=== PATIENT | female | born 1965 | race Caucasian/White ===

== ENCOUNTER 2021-09-14 09:10 | Inpatient (IN) | payer MEDICAID ==
[~2021-09-14] VITALS: Ht 144.8 cm; Wt 90.7 kg
[2021-09-14 11:13] LABS: BASOPHILS % 0.6 % (0.0-2.0); EOSINOPHILS % 2.4 % (0.0-5.0); HEMATOCRIT. 39.8 % (36.0-48.0); HEMOGLOBIN. 12.9 g/dL (12.0-16.0); MEAN CORPUSCULAR HEMOGLOBIN 27.8 pg (28.0-32.0); MEAN CORPUSCULAR VOLUME 85.7 fL (81.0-99.0); MONOCYTES % 7.8 % (2.0-8.0); NEUTROPHILS % 72.2 % (40.0-76.0); PLATELET 326 x1000/uL (130-400); RED BLOOD CELL COUNT 4.65 mill/uL (4.2-5.4); RED CELL DISTRIBUTION WIDTH 14.8 % (11.6-14.6)
[2021-09-14 11:15] LABS: CHLORIDE 101 mEq/L (98-107)
[2021-09-14] MEDS ORDERED: SODIUM CHLORIDE 0.9% 1,000 ML IV ONE (11:15)
[2021-09-14] MEDS ORDERED: CEFTRIAXONE 2 G PREMIX 50 ML IV ONE (12:15)
[2021-09-14] MEDS ORDERED: VANCOMYCIN 1G PREMIX 200 ML IV ONE (12:15)
[2021-09-14] MEDS ORDERED: CEFTRIAXONE 2 G in DEXTROSE 5% WATER 50 ML IV NR (12:30)
[2021-09-14] MEDS ORDERED: IOHEXOL-300 100 ML BOTTLE ONE (14:57)
[2021-09-14] MEDS ORDERED: CLONIDINE 0.1MG TABLET PO PRN (15:00)
[2021-09-14] MEDS ORDERED: IPRATROPIUM/ALBUTEROL 0.5-3(2.5)MG/3ML NEB HHN PRN (15:00)
[2021-09-14] MEDS ORDERED: LORAZEPAM 0.5MG TABLET PO PRN (15:00)
[2021-09-14] MEDS ORDERED: ACETAMINOPHEN 650MG SUPP PR PRN ×2 (15:00)
[2021-09-14] MEDS ORDERED: MAGNESIUM/ALUMINUM HYDROXIDE/SIMETHICONE 30ML UDC PO PRN (15:00)
[2021-09-14] MEDS ORDERED: ACETAMINOPHEN 325MG TABLET PO PRN (15:00)
[2021-09-14] MEDS ORDERED: POLYMYXIN B SULFATE 500000 UNITS/VIAL ONE ×2 (15:17→15:46)
[2021-09-14] MEDS: CEFEPIME 2,000 MG in DEXT 5% WATER 100 ML IV SCH ×2 (15:18→23:07)
[2021-09-14] MEDS ORDERED: VANCOMYCIN HCL 1 GM/VIAL ONE (15:18)
[2021-09-14] MEDS ORDERED: LIDOCAINE HCL 1% 10 MG/ML 10ML VIAL ONE (15:44)
[2021-09-14] MEDS ORDERED: PROPOFOL 200MG/20ML VIAL IV ONE (15:44)
[2021-09-14] MEDS ORDERED: DEXAMETHASONE 4MG/ML 1ML VIAL ONE (15:57)
[2021-09-14] MEDS ORDERED: ONDANSETRON HCL 4MG/2ML INJ ONE (15:57)
[2021-09-14] MEDS ORDERED: MIDAZOLAM HCL 2 MG/2 ML VIAL ONE (15:57)
[2021-09-14] MEDS ORDERED: FENTANYL CITRATE/PF 50MCG/ML 2ML VIAL ONE (15:57)
[2021-09-14] MEDS ORDERED: GLYCOPYRROLATE 0.2 MG/ML 2ML VIAL IV PRN (17:15)
[2021-09-14] MEDS ORDERED: MEPERIDINE HCL/PF 25MG/ML CPJ IV PRN (17:15)
[2021-09-14] MEDS ORDERED: FENTANYL CITRATE/PF 50MCG/ML 2ML VIAL IV PRN (17:15)
[2021-09-14] MEDS ORDERED: HYDROMORPHONE HCL/PF 2MG/ML CPJ IV PRN (17:15)
[2021-09-14] MEDS ORDERED: NALOXONE HCL 0.4MG/ML VIAL IV PRN (17:30)
[2021-09-14 20:00] VITALS: BP 130/76
[2021-09-14 21:30] VITALS: BP 130/76
[2021-09-14] MEDS ORDERED: HYDR-4001 MT (22:33)
[2021-09-14] MEDS ORDERED: PANT40TA51 PO (22:34)
[2021-09-15] VITALS: BP 123/78
[2021-09-15 04:00] VITALS: BP 127/76
[2021-09-15 06:29] LABS: BASOPHILS % 0.4 % (0.0-2.0); EOSINOPHILS % 0.1 % (0.0-5.0); HEMATOCRIT. 35.8 % (36.0-48.0); HEMOGLOBIN. 11.8 g/dL (12.0-16.0); LYMPHOCYTES % 14.1 % (20.0-50.0); MEAN CORPUSCULAR HEMOGLOBIN 28.4 pg (28.0-32.0); MEAN CORPUSCULAR VOLUME 85.8 fL (81.0-99.0); MEAN PLATELET VOLUME 7.8 fl (7.4-10.4); NEUTROPHILS % 80.4 % (40.0-76.0); PLATELET 309 x1000/uL (130-400); RED BLOOD CELL COUNT 4.18 mill/uL (4.2-5.4); RED CELL DISTRIBUTION WIDTH 14.6 % (11.6-14.6)
[2021-09-15 06:33] LABS: CHLORIDE 105 mEq/L (98-107)
[2021-09-15 06:50] LABS: CREATINE KINASE 78 IU/L (26-192); HDL CHOLESTEROL 55 mg/dL (40-59); LDL CHOLESTEROL 91 mg/dL (5-100)
[2021-09-15 08:00] VITALS: BP 116/68
[2021-09-15] MEDS: CEFEPIME 2,000 MG in DEXT 5% WATER 100 ML IV SCH ×2 (09:49→20:11)
[2021-09-15 10:56] LABS: CLARITY URINE CLEAR (CLEAR); COLOR URINE YELLOW (YELLOW); KETONES URINE 1+ (NEGATIVE); LEUKOCYTE ESTERASE URINE NEGATIVE (NEGATIVE); NITRITE URINE NEGATIVE (NEGATIVE); OCCULT BLOOD URINE NEGATIVE (NEGATIVE); PROTEIN URINE NEGATIVE (NEGATIVE); SPECIFIC GRAVITY URINE 1.019 (1.005-1.030); UROBILINOGEN URINE 0.2 E.U./dL (0.2-1.0)
[2021-09-15 12:00] VITALS: BP 121/72
[2021-09-15 16:00] VITALS: BP 122/78
[2021-09-15] MEDS: VANCOMYCIN 1G PREMIX 200 ML IV SCH ×2 (16:32)
[2021-09-15] MEDS ORDERED: NALOXONE HCL 0.4MG/ML VIAL IV PRN (19:00)
[2021-09-15 20:19] VITALS: BP 121/73
[2021-09-15] MEDS: HYDROCODONE/ACETAMINOPHEN 5/325MG TABLET PO PRN (23:05)
[2021-09-16 00:44] VITALS: BP 113/54
[2021-09-16 04:00] VITALS: BP 114/65
[2021-09-16 06:49] LABS: CHLORIDE 108 mEq/L (98-107)
[2021-09-16 07:01] LABS: BASOPHILS % 0.5 % (0.0-2.0); EOSINOPHILS % 5.4 % (0.0-5.0); HEMATOCRIT. 33.2 % (36.0-48.0); HEMOGLOBIN. 10.8 g/dL (12.0-16.0); MEAN CORPUSCULAR HEMOGLOBIN 27.8 pg (28.0-32.0); MEAN CORPUSCULAR VOLUME 85.5 fL (81.0-99.0); MEAN PLATELET VOLUME 7.7 fl (7.4-10.4); MONOCYTES % 8.9 % (2.0-8.0); NEUTROPHILS % 56.2 % (40.0-76.0); PLATELET 305 x1000/uL (130-400); RED BLOOD CELL COUNT 3.88 mill/uL (4.2-5.4); RED CELL DISTRIBUTION WIDTH 14.8 % (11.6-14.6)
[2021-09-16 08:00] VITALS: BP_SYST 114; BP_SYST 120; BP_DIAS 72; BP_DIAS 76
[2021-09-16] MEDS: CEFEPIME 2,000 MG in DEXT 5% WATER 100 ML IV SCH (09:52)
[2021-09-16] MEDS: VANCOMYCIN 750 MG in DEXT 5% WATER 250 ML IV SCH ×2 (11:19→21:41)
[2021-09-16] MEDS: MORPHINE SULFATE 2 MG/ML CPJ (NOT FOR IM USE) IV PRN (11:20)
[2021-09-16 12:00] VITALS: BP 120/72
[2021-09-16 16:00] VITALS: BP 123/76
[2021-09-16 20:00] VITALS: BP 119/73
[2021-09-17] VITALS: BP 112/68
[2021-09-17] MEDS: HYDROCODONE/ACETAMINOPHEN 5/325MG TABLET PO PRN ×2 (00:41→22:23)
[2021-09-17 04:00] VITALS: BP 117/81
[2021-09-17 06:56] LABS: BASOPHILS % 0.7 % (0.0-2.0); EOSINOPHILS % 8.8 % (0.0-5.0); HEMATOCRIT. 33.8 % (36.0-48.0); HEMOGLOBIN. 11.1 g/dL (12.0-16.0); LYMPHOCYTES % 28.4 % (20.0-50.0); MEAN CORPUSCULAR HEMOGLOBIN 28.2 pg (28.0-32.0); MEAN CORPUSCULAR VOLUME 85.7 fL (81.0-99.0); MEAN PLATELET VOLUME 7.7 fl (7.4-10.4); MONOCYTES % 8.5 % (2.0-8.0); NEUTROPHILS % 53.6 % (40.0-76.0); PLATELET 340 x1000/uL (130-400); RED BLOOD CELL COUNT 3.94 mill/uL (4.2-5.4); RED CELL DISTRIBUTION WIDTH 14.6 % (11.6-14.6)
[2021-09-17 07:32] LABS: CHLORIDE 105 mEq/L (98-107)
[2021-09-17 08:00] VITALS: BP 122/67
[2021-09-17] MEDS: VANCOMYCIN 750 MG in DEXT 5% WATER 250 ML IV SCH ×2 (11:29→22:10)
[2021-09-17 12:00] VITALS: BP 117/68
[2021-09-17 16:00] VITALS: BP 123/59
[2021-09-17 20:00] VITALS: BP 134/77
[2021-09-17] MEDS: ENOXAPARIN 30MG/0.3ML SYR SUBCUT SCH (22:10)
[2021-09-18] VITALS: BP 102/63
[2021-09-18 04:00] VITALS: BP 105/62
[2021-09-18 07:22] LABS: BASOPHILS % 0.5 % (0.0-2.0); EOSINOPHILS % 6.6 % (0.0-5.0); HEMATOCRIT. 34.4 % (36.0-48.0); HEMOGLOBIN. 11.3 g/dL (12.0-16.0); LYMPHOCYTES % 26.3 % (20.0-50.0); MEAN CORPUSCULAR HEMOGLOBIN 27.8 pg (28.0-32.0); MEAN CORPUSCULAR VOLUME 84.9 fL (81.0-99.0); MEAN PLATELET VOLUME 7.9 fl (7.4-10.4); MONOCYTES % 7.5 % (2.0-8.0); NEUTROPHILS % 59.1 % (40.0-76.0); PLATELET 337 x1000/uL (130-400); RED BLOOD CELL COUNT 4.05 mill/uL (4.2-5.4); RED CELL DISTRIBUTION WIDTH 14.8 % (11.6-14.6)
[2021-09-18 07:44] LABS: CHLORIDE 103 mEq/L (98-107)
[2021-09-18 09:00] VITALS: BP 120/69
[2021-09-18] MEDS: VANCOMYCIN 750 MG in DEXT 5% WATER 250 ML IV SCH ×2 (10:44→21:19)
[2021-09-18] MEDS: ENOXAPARIN 30MG/0.3ML SYR SUBCUT SCH ×2 (10:45→21:19)
[2021-09-18 12:00] VITALS: BP 120/65
[2021-09-18 16:00] VITALS: BP 107/70
[2021-09-18] MEDS ORDERED: MAGNESIUM/ALUMINUM HYDROXIDE/SIMETHICONE 30ML UDC PO PRN (18:15)
[2021-09-18 20:00] VITALS: BP 134/54
[2021-09-18] MEDS: HYDROCODONE/ACETAMINOPHEN 5/325MG TABLET PO PRN (23:02)
[2021-09-19] VITALS: BP 113/55
[2021-09-19 04:00] VITALS: BP 98/51
[2021-09-19] MEDS ORDERED: LIDOCAINE HCL/PF 1% 10 MG/ML 5ML VIAL ONE (07:40)
[2021-09-19 08:00] VITALS: BP 113/69
[2021-09-19] MEDS: ENOXAPARIN 30MG/0.3ML SYR SUBCUT SCH ×2 (09:15→20:39)
[2021-09-19] MEDS: VANCOMYCIN 750 MG in DEXT 5% WATER 250 ML IV SCH ×2 (10:34→22:09)
[2021-09-19 12:00] VITALS: BP 120/64
[2021-09-19] MEDS: MORPHINE SULFATE 2 MG/ML CPJ (NOT FOR IM USE) IV PRN (13:58)
[2021-09-19 16:00] VITALS: BP 120/64
[2021-09-19 20:00] VITALS: BP 136/77
[2021-09-19] MEDS: HYDROCODONE/ACETAMINOPHEN 5/325MG TABLET PO PRN (22:09)
[2021-09-20] VITALS: BP 129/75
[2021-09-20 04:00] VITALS: BP 117/62
[2021-09-20 08:00] VITALS: BP 129/73
[2021-09-20] MEDS: ENOXAPARIN 30MG/0.3ML SYR SUBCUT SCH ×2 (09:36→22:36)
[2021-09-20] MEDS: VANCOMYCIN 750 MG in DEXT 5% WATER 250 ML IV SCH ×2 (11:03→22:36)
[2021-09-20 12:00] VITALS: BP 128/75
[2021-09-20 16:00] VITALS: BP 126/83
[2021-09-20 20:00] VITALS: BP 125/72
[2021-09-20] MEDS: HYDROCODONE/ACETAMINOPHEN 5/325MG TABLET PO PRN (22:38)
[2021-09-21] VITALS: BP 114/53
[2021-09-21 04:00] VITALS: BP 107/69
[2021-09-21 07:29] LABS: CHLORIDE 106 mEq/L (98-107)
[2021-09-21 08:00] VITALS: BP 138/83
[2021-09-21] MEDS: ENOXAPARIN 30MG/0.3ML SYR SUBCUT SCH ×2 (08:01→21:35)
[2021-09-21] MEDS: VANCOMYCIN 750 MG in DEXT 5% WATER 250 ML IV SCH ×2 (10:52→23:46)
[2021-09-21 12:00] VITALS: BP 120/69
[2021-09-21 16:00] VITALS: BP 126/56
[2021-09-21 20:00] VITALS: BP 120/67
[2021-09-21] MEDS: HYDROCODONE/ACETAMINOPHEN 5/325MG TABLET PO PRN (21:35)
[2021-09-22] VITALS: BP 114/55
[2021-09-22 04:00] VITALS: BP 112/63
[2021-09-22 07:23] LABS: CHLORIDE 103 mEq/L (98-107)
[2021-09-22 08:00] VITALS: BP 133/70
[2021-09-22] MEDS: ENOXAPARIN 30MG/0.3ML SYR SUBCUT SCH ×2 (08:54→21:10)
[2021-09-22 09:03] LABS: BASOPHILS % 0.4 % (0.0-2.0); EOSINOPHILS % 7.9 % (0.0-5.0); HEMATOCRIT. 34.2 % (36.0-48.0); HEMOGLOBIN. 11.1 g/dL (12.0-16.0); LYMPHOCYTES % 25.8 % (20.0-50.0); MEAN CORPUSCULAR HEMOGLOBIN 27.8 pg (28.0-32.0); MEAN CORPUSCULAR VOLUME 85.8 fL (81.0-99.0); MEAN PLATELET VOLUME 8.2 fl (7.4-10.4); MONOCYTES % 8.5 % (2.0-8.0); NEUTROPHILS % 57.4 % (40.0-76.0); PLATELET 360 x1000/uL (130-400); RED BLOOD CELL COUNT 3.99 mill/uL (4.2-5.4); RED CELL DISTRIBUTION WIDTH 15.1 % (11.6-14.6)
[2021-09-22] MEDS: VANCOMYCIN 750 MG in DEXT 5% WATER 250 ML IV SCH ×2 (11:10→22:11)
[2021-09-22 12:00] VITALS: BP 114/75
[2021-09-22 16:00] VITALS: BP 120/69
[2021-09-22] MEDS: HYDROCODONE/ACETAMINOPHEN 5/325MG TABLET PO PRN (17:36)
[2021-09-22 20:00] VITALS: BP 125/88
[2021-09-23] VITALS: BP 117/76
[2021-09-23] MEDS: HYDROCODONE/ACETAMINOPHEN 5/325MG TABLET PO PRN ×2 (00:48→21:04)
[2021-09-23 04:00] VITALS: BP 114/62
[2021-09-23 07:31] LABS: BASOPHILS % 0.5 % (0.0-2.0); HEMATOCRIT. 34.3 % (36.0-48.0); HEMOGLOBIN. 11.3 g/dL (12.0-16.0); MEAN CORPUSCULAR HEMOGLOBIN 27.9 pg (28.0-32.0); MEAN CORPUSCULAR VOLUME 84.9 fL (81.0-99.0); MEAN PLATELET VOLUME 8.2 fl (7.4-10.4); MONOCYTES % 8.3 % (2.0-8.0); NEUTROPHILS % 55.2 % (40.0-76.0); PLATELET 328 x1000/uL (130-400); RED BLOOD CELL COUNT 4.04 mill/uL (4.2-5.4); RED CELL DISTRIBUTION WIDTH 15.1 % (11.6-14.6)
[2021-09-23 07:46] LABS: CHLORIDE 103 mEq/L (98-107)
[2021-09-23 08:00] VITALS: BP 110/60
[2021-09-23] MEDS: ENOXAPARIN 30MG/0.3ML SYR SUBCUT SCH ×2 (08:23→21:03)
[2021-09-23] MEDS: VANCOMYCIN 750 MG in DEXT 5% WATER 250 ML IV SCH ×2 (11:38→22:37)
[2021-09-23 12:00] VITALS: BP_SYST 143; BP_SYST 146; BP_DIAS 56; BP_DIAS 59
[2021-09-23 16:00] VITALS: BP_SYST 133; BP_DIAS 65; BP_DIAS 85
[2021-09-23 20:16] VITALS: BP 113/70
[2021-09-24] VITALS (8 sets, daily range): BP systolic 102–121; BP diastolic 56–67
[2021-09-24] MEDS: HYDROCODONE/ACETAMINOPHEN 5/325MG TABLET PO PRN (05:47)
[2021-09-24 06:31] LABS: BASOPHILS % 0.8 % (0.0-2.0); EOSINOPHILS % 9.1 % (0.0-5.0); HEMOGLOBIN. 11.2 g/dL (12.0-16.0); LYMPHOCYTES % 26.2 % (20.0-50.0); MEAN CORPUSCULAR HEMOGLOBIN 27.9 pg (28.0-32.0); MEAN CORPUSCULAR VOLUME 84.9 fL (81.0-99.0); MEAN PLATELET VOLUME 7.9 fl (7.4-10.4); MONOCYTES % 8.9 % (2.0-8.0); PLATELET 322 x1000/uL (130-400); RED BLOOD CELL COUNT 4.01 mill/uL (4.2-5.4); RED CELL DISTRIBUTION WIDTH 15.1 % (11.6-14.6)
[2021-09-24 06:49] LABS: CHLORIDE 104 mEq/L (98-107)
[2021-09-24] MEDS: ENOXAPARIN 30MG/0.3ML SYR SUBCUT SCH ×2 (08:17→20:40)
[2021-09-24] MEDS: VANCOMYCIN 750 MG in DEXT 5% WATER 250 ML IV SCH ×2 (10:48→22:42)
[2021-09-24] MEDS: ACETAMINOPHEN 325MG TABLET PO PRN (20:41)
[2021-09-25] VITALS: BP 112/70
[2021-09-25] MEDS: ACETAMINOPHEN 325MG TABLET PO PRN (02:50)
[2021-09-25 04:00] VITALS: BP 113/74
[2021-09-25 08:00] VITALS: BP 127/76
[2021-09-25] MEDS: HYDROCODONE/ACETAMINOPHEN 5/325MG TABLET PO PRN ×2 (09:02→22:39)
[2021-09-25] MEDS: ENOXAPARIN 30MG/0.3ML SYR SUBCUT SCH ×2 (09:03→21:13)
[2021-09-25] MEDS: VANCOMYCIN 750 MG in DEXT 5% WATER 250 ML IV SCH ×2 (10:28→23:26)
[2021-09-25 12:00] VITALS: BP 120/67
[2021-09-25] MEDS ORDERED: NALOXONE HCL 0.4MG/ML VIAL IV PRN (15:00)
[2021-09-25 16:00] VITALS: BP 115/68
[2021-09-25 20:00] VITALS: BP 102/63
[2021-09-26] VITALS: BP 110/63
[2021-09-26 04:00] VITALS: BP 118/60
[2021-09-26 08:00] VITALS: BP 133/78
[2021-09-26] MEDS: ENOXAPARIN 30MG/0.3ML SYR SUBCUT SCH ×2 (08:31→21:14)
[2021-09-26 12:00] VITALS: BP 121/77
[2021-09-26] MEDS: VANCOMYCIN 750 MG in DEXT 5% WATER 250 ML IV SCH ×2 (12:04→23:00)
[2021-09-26 16:00] VITALS: BP 104/69
[2021-09-26 20:00] VITALS: BP 121/72
[2021-09-26] MEDS: HYDROCODONE/ACETAMINOPHEN 5/325MG TABLET PO PRN (21:13)
[2021-09-27] VITALS: BP 116/71
[2021-09-27 04:00] VITALS: BP 119/59
[2021-09-27 08:00] VITALS: BP 123/68
[2021-09-27] MEDS: ENOXAPARIN 30MG/0.3ML SYR SUBCUT SCH ×2 (09:26→21:20)
[2021-09-27] MEDS: HYDROCODONE/ACETAMINOPHEN 5/325MG TABLET PO PRN ×2 (09:31→22:30)
[2021-09-27] MEDS: VANCOMYCIN 750 MG in DEXT 5% WATER 250 ML IV SCH ×2 (11:32→22:23)
[2021-09-27 12:00] VITALS: BP 121/69
[2021-09-27 16:00] VITALS: BP 121/71
[2021-09-27 20:00] VITALS: BP 114/69
[2021-09-28] VITALS: BP 102/69
[2021-09-28 04:00] VITALS: BP 127/70
[2021-09-28] MEDS: ENOXAPARIN 30MG/0.3ML SYR SUBCUT SCH ×2 (10:53→22:10)
[2021-09-28] MEDS: HYDROCODONE/ACETAMINOPHEN 5/325MG TABLET PO PRN ×2 (10:55→22:10)
[2021-09-28] MEDS: VANCOMYCIN 750 MG in DEXT 5% WATER 250 ML IV SCH ×2 (11:03→22:09)
[2021-09-28 20:00] VITALS: BP 122/67
[2021-09-29] VITALS: BP 104/59
[2021-09-29 04:00] VITALS: BP 117/72
[2021-09-29 08:00] VITALS: BP 113/1
[2021-09-29 08:32] LABS: BASOPHILS % 0.4 % (0.0-2.0); EOSINOPHILS % 8.6 % (0.0-5.0); MEAN CORPUSCULAR HEMOGLOBIN 27.6 pg (28.0-32.0); MEAN CORPUSCULAR VOLUME 85.3 fL (81.0-99.0); MEAN PLATELET VOLUME 8.9 fl (7.4-10.4); MONOCYTES % 8.1 % (2.0-8.0); NEUTROPHILS % 55.9 % (40.0-76.0); PLATELET 297 x1000/uL (130-400); RED BLOOD CELL COUNT 3.99 mill/uL (4.2-5.4); RED CELL DISTRIBUTION WIDTH 15.4 % (11.6-14.6)
[2021-09-29 08:45] LABS: CHLORIDE 104 mEq/L (98-107)
[2021-09-29] MEDS: ENOXAPARIN 30MG/0.3ML SYR SUBCUT SCH ×2 (09:53→21:00)
[2021-09-29] MEDS: VANCOMYCIN 750 MG in DEXT 5% WATER 250 ML IV SCH ×2 (10:26→23:00)
[2021-09-29 12:00] VITALS: BP 103/60
[2021-09-29] MEDS: HYDROCODONE/ACETAMINOPHEN 5/325MG TABLET PO PRN ×2 (15:23→22:44)
[2021-09-29 16:00] VITALS: BP 120/69
[2021-09-29 20:00] VITALS: BP 118/59
[2021-09-30] VITALS: BP 113/62
[2021-09-30 04:00] VITALS: BP 103/59
[2021-09-30 08:00] VITALS: BP 119/59
[2021-09-30] MEDS: ENOXAPARIN 30MG/0.3ML SYR SUBCUT SCH (10:29)
[2021-09-30] MEDS: VANCOMYCIN 750 MG in DEXT 5% WATER 250 ML IV SCH (12:46)
[2021-09-30 14:34] VITALS: BP 119/59
== END 2021-09-30 16:49 | disposition home health service (06) | DRG 721 ==
LOC: ER 09:10 → EDBEDREQSVC 14:22 → EDBEDREQTM 14:22 → EDBEDREQ 14:22 → ENRESERV 14:40 → 7WST 14:43 → EDBEDREQ 14:47 → 6EST 09-25 18:09
PROVIDERS: ADMIT Specialist; ATTEND Specialist
PROC: 3E1U38Z Irrigation of Joints using Irrigating Substance, Percutaneous Approach (ICD-10-PCS; principal; 2021-09-14)
PROC: 02HV33Z Insertion of Infusion Device into Superior Vena Cava, Percutaneous Approach (ICD-10-PCS; 2021-09-19)
PROC: B548ZZA Ultrasonography of Superior Vena Cava, Guidance (ICD-10-PCS; 2021-09-19)
DX: T81.49XA Infection following a procedure, other surgical site, initial encounter (principal); A41.9 Sepsis, unspecified organism; M00.9 Pyogenic arthritis, unspecified; E87.1 Hypo-osmolality and hyponatremia; L02.415 Cutaneous abscess of right lower limb; E78.5 Hyperlipidemia, unspecified; D64.9 Anemia, unspecified; I10 Essential (primary) hypertension; Z20.822 Contact with and (suspected) exposure to COVID-19; J45.909 Unspecified asthma, uncomplicated; Y83.8 Other surgical procedures as the cause of abnormal reaction of the patient, or of later complication, without mention of misadventure at the time of the procedure; Y92.89 Other specified places as the place of occurrence of the external cause; B95.62 Methicillin resistant Staphylococcus aureus infection as the cause of diseases classified elsewhere
CPT/HCPCS: 36415; 36573; 71045; 73562; 73700; 73721; 80048; 80053; 80061; 80202; 81003; 82550; 82962; 83605; 83735; 83880; 84145; 84443; 85025; 85651; 86140; 87070; 87075; 87077; 87186; 87426; 93970; 97162; 97164; 97166; 97168; 97535; 99291; C1725; C9803; J0692; J0696; J1100; J1650; J2250; J2270; J2310; J2405; J2704; J3010; J3370; J3490; J7030; J7060; L1830; Q9967

== ENCOUNTER 2021-10-07 13:50 | Emergency (ER) | payer MEDICAID ==
[~2021-10-07] VITALS: Ht 152.4 cm; Wt 73.0 kg
[~2021-10-07 13:50] MED LIST: HYDR-4001 MT; PANT40TA51 PO
[2021-10-07 17:39] LABS: BASOPHILS % 0.9 % (0.0-2.0); EOSINOPHILS % 3.4 % (0.0-5.0); HEMOGLOBIN. 12.4 g/dL (12.0-16.0); MEAN CORPUSCULAR VOLUME 83.7 fL (81.0-99.0); MONOCYTES % 5.2 % (2.0-8.0); NEUTROPHILS % 71.5 % (40.0-76.0); PLATELET 304 x1000/uL (130-400); RED BLOOD CELL COUNT 4.42 mill/uL (4.2-5.4); RED CELL DISTRIBUTION WIDTH 15.4 % (11.6-14.6)
[2021-10-07 17:52] LABS: CHLORIDE 105 mEq/L (98-107)
[2021-10-07] MEDS ORDERED: SULF1TAB48 MT (19:07)
[2021-10-07 19:25] VITALS: BP 127/78
== END 2021-10-07 19:26 | disposition home or self-care (01) ==
LOC: ER 13:50
DX: Z48.00 Encounter for change or removal of nonsurgical wound dressing (principal); Z98.890 Other specified postprocedural states; J45.909 Unspecified asthma, uncomplicated
CPT/HCPCS: 36415; 73560; 80053; 83605; 85025; 99284